=== PATIENT | female | born 1940 | race Two or more races ===

== ENCOUNTER 2017-12-04 08:09 | Outpatient (CLI) | payer OTHER | END 2017-12-04 10:30 | disposition home or self-care (01) | LOC: TOM 08:09 | DX: R19.5 Other fecal abnormalities (principal); K56.50 Intestinal adhesions [bands], unspecified as to partial versus complete obstruction; D12.3 Benign neoplasm of transverse colon; K44.9 Diaphragmatic hernia without obstruction or gangrene ==